=== PATIENT | male | born 1945 | race Caucasian/White ===

== ENCOUNTER → 2016-11-08 | Outpatient (CLI) | payer MEDICARE ==
[~2016-11-08] MED LIST: ARTHROTEC 50 MG75 MG PO; ASPIRIN81 MG PO; GLYBURIDE5 MG PO; MEDROL DOSEPAK4 MG PO; METFORMIN1000 MG PO; TORSEMIDE20 MG PO; VESICARE5 MG PO
[2016-11-08 11:12] LABS: BASO % 0.4 % (0.0-1.0); EOS # 0.1 10*3/uL (0.0-0.4); EOS % 1.7 % (1.0-4.0); HEMATOCRIT 40.5 % (42.0-52.0); HEMOGLOBIN 13.4 g/dl (14.0-18.0); LYMPH # 1.6 10*3/uL (1.3-4.4); LYMPH % 20.7 % (27.0-41.0); MEAN CELL VOLUME 86.9 fl (80.0-94.0); MEAN CORPUSCULAR HGB 28.8 pg (27.0-31.0); MEAN CORPUSCULAR HGB CONC 33.1 g/dl (33.0-37.0); MONO # 0.6 10*3/uL (0.1-1.0); MONO % 7.9 % (3.0-9.0); NEUT # 5.2 10*3/uL (2.3-7.9); NEUT % 68.8 % (47.0-73.0); PLATELET COUNT AUTOMATED 200 10*3/uL (130-400); RED BLOOD COUNT 4.66 10*6/uL (4.50-5.90); RED CELL DISTRI WIDTH 14.3 % (0-14.5); WHITE BLOOD COUNT 7.6 10*3/uL (4.8-10.8)
[2016-11-08 11:35] LABS: HEMOGLOBIN A1c 6.4 % (4.8-5.6)
[2016-11-08 11:41] LABS: ALBUMIN 3.4 gm/dl (3.1-4.5); ALKALINE PHOSPHATASE 111 U/L (45-117); BILIRUBIN, TOTAL 0.5 mg/dl (0.2-1.0); BUN 12 mg/dl (7-24); CARBON DIOXIDE 27 mmol/L (21-32); CHLORIDE 107 mmol/L (98-107); CHOLESTEROL 149 mg/dL (<200); EST GLOM FILT AFRICAN AMERICAN > 60 ml/min; GLUCOSE 100 mg/dL (65-99); HDL CHOLESTEROL 53 mg/dl (40-60); LDL CHOLESTEROL 79 mg/dL (9-159); POTASSIUM 4.1 mmol/L (3.5-5.1); SGOT/AST 15 IU/L (3-35); SGPT/ALT 20 U/L (12-78); SODIUM 142 mmol/L (136-145); TOTAL PROTEIN 6.6 gm/dL (6.4-8.2); TRIGLYCERIDES 85 mg/dl (<150); VLDL CHOLESTEROL 17 mg/dL (6-40)
[2016-11-08 11:47] LABS: THYROID STIM HORMONE (HS) 0.239 uIU/ml (0.358-4.75)
== END | disposition home or self-care (01) ==
LOC: LAB 10:46
PROVIDERS: Internal Medicine
DX: E78.5 Hyperlipidemia, unspecified (principal); E11.9 Type 2 diabetes mellitus without complications; E66.9 Obesity, unspecified; R53.83 Other fatigue

== ENCOUNTER → 2016-12-03 | Outpatient (CLI) | payer BC, MEDICARE ==
[2016-12-03 09:23] LABS: PROTHROMBIN TIME 10.5 SECONDS (9.0-12.4)
[2016-12-03 14:04] LABS: BILIRUBIN NEGATIVE (NEGATIVE); BLOOD NEGATIVE (NEGATIVE); CLARITY CLEAR (CLEAR); COLOR YELLOW (YELLOW); GLUCOSE NEGATIVE (NEGATIVE); KETONE NEGATIVE (NEGATIVE); LEUKO ESTERASE TRACE (NEGATIVE); NITRITE NEGATIVE (NEGATIVE); PH 5.5 (5.0-9.0); PROTEIN NEGATIVE (NEGATIVE); UROBILINOGEN 0.2 E.U./dl (0.2-1.0)
[2016-12-03 14:14] LABS: MUCOUS 1+; URINE REFLEX COMMENT YES (NO)
== END | disposition home or self-care (01) ==
LOC: LAB 08:15
PROVIDERS: Orthopaedic Surgery
DX: Z01.818 Encounter for other preprocedural examination (principal); M19.90 Unspecified osteoarthritis, unspecified site; E11.9 Type 2 diabetes mellitus without complications; I10 Essential (primary) hypertension; R35.0 Frequency of micturition; Z96.651 Presence of right artificial knee joint

== ENCOUNTER → 2017-03-22 | Outpatient (CLI) | payer BC, MEDICARE ==
[2017-03-22 08:08] LABS: BASO % 0.3 % (0.0-1.0); EOS # 0.1 10*3/uL (0.0-0.4); HEMATOCRIT 42.5 % (42.0-52.0); HEMOGLOBIN 13.6 g/dl (14.0-18.0); LYMPH # 2.2 10*3/uL (1.3-4.4); LYMPH % 23.8 % (27.0-41.0); MEAN CELL VOLUME 83.7 fl (80.0-94.0); MEAN CORPUSCULAR HGB 26.8 pg (27.0-31.0); MEAN PLATELET VOLUME 10.3 fl (9.6-12.3); MONO # 0.6 10*3/uL (0.1-1.0); MONO % 6.6 % (3.0-9.0); NEUT # 6.2 10*3/uL (2.3-7.9); NEUT % 67.9 % (47.0-73.0); PLATELET COUNT AUTOMATED 245 10*3/uL (130-400); RED BLOOD COUNT 5.08 10*6/uL (4.50-5.90); RED CELL DISTRI WIDTH 14.6 % (0-14.5); WHITE BLOOD COUNT 9.1 10*3/uL (4.8-10.8)
[2017-03-22 08:40] LABS: ALBUMIN 3.3 gm/dl (3.1-4.5); BILIRUBIN, TOTAL 0.5 mg/dl (0.2-1.0); BUN 11 mg/dl (7-24); CARBON DIOXIDE 23 mmol/L (21-32); CHLORIDE 107 mmol/L (98-107); CHOLESTEROL 127 mg/dL (<200); EST GLOM FILT AFRICAN AMERICAN > 60 ml/min; GLUCOSE 59 mg/dL (65-99); POTASSIUM 4.1 mmol/L (3.5-5.1); SGOT/AST 11 IU/L (3-35); SGPT/ALT 12 U/L (12-78); SODIUM 140 mmol/L (136-145); TOTAL PROTEIN 6.9 gm/dL (6.4-8.2); TRIGLYCERIDES 126 mg/dl (<150); VLDL CHOLESTEROL 25 mg/dL (6-40)
[2017-03-22 08:47] LABS: ALKALINE PHOSPHATASE 115 U/L (45-117); HDL CHOLESTEROL 41 mg/dl (40-60); LDL CHOLESTEROL 61 mg/dL (9-159); T3 UPTAKE 40 % (31-39); THYROID STIM HORMONE (HS) 0.186 uIU/ml (0.358-4.75); THYROXINE (T4) TOTAL 9.4 ug/dl (4.5-12.1)
[2017-03-22 09:37] LABS: HEMOGLOBIN A1c 6.3 % (4.8-5.6)
== END | disposition home or self-care (01) ==
LOC: LAB 02:28
PROVIDERS: Internal Medicine
DX: E11.9 Type 2 diabetes mellitus without complications (principal); I10 Essential (primary) hypertension; E78.5 Hyperlipidemia, unspecified; R73.9 Hyperglycemia, unspecified; R53.83 Other fatigue

== ENCOUNTER 2017-07-25 15:27 | Emergency (ER) | payer BC, MEDICARE ==
[~2017-07-25] VITALS: Ht 180.3 cm; Wt 129.3 kg
[2017-07-25 16:36] LABS: HEMATOCRIT 39.7 % (42.0-52.0); HEMOGLOBIN 13.3 g/dl (14.0-18.0); LYMPH # 0.5 10*3/uL (1.3-4.4); LYMPH % 7.1 % (27.0-41.0); MEAN CELL VOLUME 83.4 fl (80.0-94.0); MEAN CORPUSCULAR HGB 27.9 pg (27.0-31.0); MEAN CORPUSCULAR HGB CONC 33.5 g/dl (33.0-37.0); MEAN PLATELET VOLUME 10.2 fl (9.6-12.3); MONO # 0.9 10*3/uL (0.1-1.0); MONO % 12.1 % (3.0-9.0); NEUT % 80.5 % (47.0-73.0); PLATELET COUNT AUTOMATED 184 10*3/uL (130-400); RED BLOOD COUNT 4.76 10*6/uL (4.50-5.90); RED CELL DISTRI WIDTH 15.2 % (0-14.5); WHITE BLOOD COUNT 7.5 10*3/uL (4.8-10.8)
[2017-07-25 16:49] LABS: ACT PARTIAL THROMBO TIME 28.7 SECONDS (20.8-31.5)
[2017-07-25 16:59] LABS: ALBUMIN 3.1 gm/dl (3.1-4.5); ALKALINE PHOSPHATASE 101 U/L (45-117); BUN 15 mg/dl (7-24); CHLORIDE 100 mmol/L (98-107); CREATININE 0.71 mg/dL (0.70-1.30); LIPASE 140 U/L (73-393); POTASSIUM 3.3 mmol/L (3.5-5.1); SGOT/AST 33 IU/L (3-35); SGPT/ALT 25 U/L (12-78); SODIUM 137 mmol/L (136-145); TOTAL PROTEIN 6.5 gm/dL (6.4-8.2)
[2017-07-25 17:00] LABS: TROPONIN I 0.035 ng/ml (<0.045)
[2017-07-25] MEDS ORDERED: TESSALON PERLE100 M1 PO (18:37)
[2017-07-25] MEDS ORDERED: VIBRAMYCIN100 MG PO (18:37)
== END 2017-07-25 18:45 | disposition home or self-care (01) ==
LOC: ED 15:27
PROVIDERS: Physician Assistant
DX: S09.90XA Unspecified injury of head, initial encounter (principal); J40 Bronchitis, not specified as acute or chronic; E11.9 Type 2 diabetes mellitus without complications; I10 Essential (primary) hypertension; Z79.84 Long term (current) use of oral hypoglycemic drugs; Z79.82 Long term (current) use of aspirin; Z79.899 Other long term (current) drug therapy; W10.8XXA Fall (on) (from) other stairs and steps, initial encounter; Y93.89 Activity, other specified; Y92.89 Other specified places as the place of occurrence of the external cause; Y99.8 Other external cause status

== ENCOUNTER → 2019-04-15 | Outpatient (CLI) | payer MEDICARE ==
[~2019-04-15] MED LIST changes: +TESSALON PERLE100 M1 PO; +VIBRAMYCIN100 MG PO
== END | disposition home or self-care (01) ==
LOC: US 04-09 13:30
DX: N28.1 Cyst of kidney, acquired (principal); N39.498 Other specified urinary incontinence; E11.9 Type 2 diabetes mellitus without complications

== ENCOUNTER 2020-09-02 13:12 | Inpatient (IN) | payer MEDICARE ==
[~2020-09-02] VITALS: Wt 118.4 kg
[~2020-09-02 13:12] MED LIST changes: +GLUCOPHAGE500 M1 PO; -METFORMIN1000 MG PO
[2020-09-02 13:14] VITALS: BP 127/52
[2020-09-02 13:47] LABS: BASO % 0.4 % (0.0-1.0); EOS # 0.1 10*3/uL (0.0-0.4); EOS % 1.2 % (1.0-4.0); HEMATOCRIT 41.5 % (42.0-52.0); LYMPH # 1.1 10*3/uL (1.3-4.4); LYMPH % 13.9 % (27.0-41.0); MEAN CELL VOLUME 91.6 fl (80.0-94.0); MEAN CORPUSCULAR HGB CONC 30.6 g/dl (33.0-37.0); MEAN PLATELET VOLUME 10.6 fl (9.6-12.3); MONO # 0.7 10*3/uL (0.1-1.0); MONO % 8.8 % (3.0-9.0); NEUT # 5.8 10*3/uL (2.3-7.9); NEUT % 75.6 % (47.0-73.0); PLATELET COUNT AUTOMATED 197 10*3/uL (130-400); RED BLOOD COUNT 4.53 10*6/uL (4.50-5.90); RED CELL DISTRI WIDTH 14.2 % (0-14.5); WHITE BLOOD COUNT 7.6 10*3/uL (4.8-10.8)
[2020-09-02 13:57] LABS: ACT PARTIAL THROMBO TIME 26.6 SECONDS (20.0-32.1)
[2020-09-02 14:03] LABS: ALBUMIN 3.1 gm/dl (3.1-4.5); ALKALINE PHOSPHATASE 106 U/L (45-117); BUN 12 mg/dl (7-24); CHLORIDE 113 mmol/L (98-107); CREATININE 0.86 mg/dL (0.70-1.30); POTASSIUM 3.2 mmol/L (3.5-5.1); SGOT/AST 6 IU/L (3-35); SGPT/ALT 14 U/L (12-78); SODIUM 144 mmol/L (136-145); TOTAL PROTEIN 6.1 gm/dL (6.4-8.2)
[2020-09-02 14:07] LABS: TROPONIN I < 0.015 ng/ml (<0.045)
[2020-09-02 18:40] LABS: BILIRUBIN Negative (Negative); BLOOD Negative (Negative); CLARITY Clear (Clear); COLOR Yellow (Yellow); GLUCOSE Negative (Negative); KETONE Trace (Negative); LEUKO ESTERASE 1+ (Negative); NITRITE Negative (Negative); PH 5.5 (4.5-8.0); SPECIFIC GRAVITY 1.025 (1.001-1.030)
[2020-09-02 18:41] VITALS: BP 122/51
[2020-09-02 18:53] LABS: BACTERIA 1+; WBC 16-20 wbc/hpf (0-5)
[2020-09-02 20:50] VITALS: BP 150/82
[2020-09-02] MEDS ORDERED: LORAZEPAM0.5 MG PO (21:03)
[2020-09-02] MEDS ORDERED: METHIMAZOLE5 M1 PO (21:03)
[2020-09-02] MEDS ORDERED: HYDRALAZINE HC100 MG PO (21:03)
[2020-09-02] MEDS ORDERED: GABAPENTIN100 M2 PO (21:04)
[2020-09-02] MEDS ORDERED: OXYBUTYNIN ER15 MG PO (21:04)
[2020-09-02] MEDS ORDERED: MEMANTINE HCL5 MG PO (21:05)
[2020-09-02] MEDS ORDERED: DONEPEZIL HCL10 MG PO (21:05)
[2020-09-02] MEDS ORDERED: RISPERIDONE0.5 MG PO (21:05)
[2020-09-02] MEDS ORDERED: GLIPIZIDE5 MG PO (21:06)
[2020-09-02] MEDS ORDERED: ADVIL200 M1 PO (23:58)
[2020-09-03 01:00] VITALS: BP 160/82
[2020-09-03 06:45] LABS: BASO % 0.2 % (0.0-1.0); EOS # 0.2 10*3/uL (0.0-0.4); EOS % 1.8 % (1.0-4.0); HEMATOCRIT 40.1 % (42.0-52.0); LYMPH # 1.4 10*3/uL (1.3-4.4); LYMPH % 16.3 % (27.0-41.0); MEAN CELL VOLUME 90.3 fl (80.0-94.0); MEAN CORPUSCULAR HGB 28.6 pg (27.0-31.0); MEAN CORPUSCULAR HGB CONC 31.7 g/dl (33.0-37.0); MEAN PLATELET VOLUME 10.9 fl (9.6-12.3); MONO # 0.8 10*3/uL (0.1-1.0); MONO % 9.2 % (3.0-9.0); NEUT # 6.4 10*3/uL (2.3-7.9); NEUT % 72.3 % (47.0-73.0); PLATELET COUNT AUTOMATED 196 10*3/uL (130-400); RED BLOOD COUNT 4.44 10*6/uL (4.50-5.90); RED CELL DISTRI WIDTH 14.2 % (0-14.5); WHITE BLOOD COUNT 8.8 10*3/uL (4.8-10.8)
[2020-09-03 06:55] LABS: BUN 12 mg/dl (7-24); CHLORIDE 115 mmol/L (98-107); CREATININE 0.67 mg/dL (0.70-1.30); SODIUM 143 mmol/L (136-145)
[2020-09-03 08:00] VITALS: BP 180/98; BP 185/69
[2020-09-03 09:50] VITALS: BP 150/78
[2020-09-03 12:00] VITALS: BP 143/84
[2020-09-03 16:00] VITALS: BP 139/89
[2020-09-03 20:00] VITALS: BP 158/50
[2020-09-04] VITALS (7 sets, daily range): BP systolic 159–184; BP diastolic 65–94
[2020-09-05] VITALS: BP 112/60; BP 166/61
[2020-09-05 07:29] LABS: FERRITIN 42.9 ng/mL (22.0-322.0)
[2020-09-05 07:34] LABS: BUN 12 mg/dl (7-24); CHLORIDE 110 mmol/L (98-107); POTASSIUM 3.7 mmol/L (3.5-5.1); SODIUM 138 mmol/L (136-145)
[2020-09-05 07:36] LABS: CREATININE 0.71 mg/dL (0.70-1.30); IRON 56 ug/dL (65-175); TOTAL IRON BINDING CAPACITY 460 ug/dl (250-450)
[2020-09-05 08:00] VITALS: BP 169/82
[2020-09-05 12:00] VITALS: BP 180/60
[2020-09-05 20:00] VITALS: BP 161/62
[2020-09-06] VITALS (11 sets, daily range): BP systolic 117–179; BP diastolic 47–70
[2020-09-06 06:55] LABS: ACT PARTIAL THROMBO TIME 35.3 SECONDS (20.0-32.1)
[2020-09-07] VITALS: BP 146/52
[2020-09-07 06:12] LABS: BASO % 0.1 % (0.0-1.0); EOS % 0.4 % (1.0-4.0); HEMATOCRIT 37.3 % (42.0-52.0); LYMPH # 0.8 10*3/uL (1.3-4.4); LYMPH % 8.4 % (27.0-41.0); MEAN CELL VOLUME 91.6 fl (80.0-94.0); MEAN CORPUSCULAR HGB 29.2 pg (27.0-31.0); MEAN CORPUSCULAR HGB CONC 31.9 g/dl (33.0-37.0); MEAN PLATELET VOLUME 10.6 fl (9.6-12.3); MONO % 10.7 % (3.0-9.0); NEUT # 7.6 10*3/uL (2.3-7.9); PLATELET COUNT AUTOMATED 196 10*3/uL (130-400); RED BLOOD COUNT 4.07 10*6/uL (4.50-5.90); RED CELL DISTRI WIDTH 14.2 % (0-14.5); WHITE BLOOD COUNT 9.5 10*3/uL (4.8-10.8)
[2020-09-07 06:29] LABS: BUN 21 mg/dl (7-24); CHLORIDE 105 mmol/L (98-107); CREATININE 0.69 mg/dL (0.70-1.30); POTASSIUM 3.6 mmol/L (3.5-5.1); SODIUM 138 mmol/L (136-145)
[2020-09-07 08:00] VITALS: BP 170/54
[2020-09-07 12:00] VITALS: BP 174/68
[2020-09-07] MEDS ORDERED: ASPIRIN ADULT L81 M2 PO (15:34)
[2020-09-07] MEDS ORDERED: FEOSOL325 MG PO (15:34)
[2020-09-07] MEDS ORDERED: ELIQUIS5 M1 PO (15:34)
[2020-09-07] MEDS ORDERED: NATURE'S BLEND F1 MG PO (15:34)
[2020-09-07 16:00] VITALS: BP 173/69
[2020-09-07 18:00] VITALS: BP 142/80
== END 2020-09-07 18:58 | DRG 641 ==
LOC: ED 13:12 → EDHOLD 17:57 → 5E 17:57
PROVIDERS: Nurse Practitioner Family; Student in an Organized Health Care Education/Training Program; ADMIT Internal Medicine; ATTEND Internal Medicine
DX: E87.6 Hypokalemia (principal); N39.0 Urinary tract infection, site not specified; I45.2 Bifascicular block; F02.81 Dementia in other diseases classified elsewhere, unspecified severity, with behavioral disturbance; G91.2 (Idiopathic) normal pressure hydrocephalus; I48.91 Unspecified atrial fibrillation; E11.9 Type 2 diabetes mellitus without complications; Z96.651 Presence of right artificial knee joint; I45.10 Unspecified right bundle-branch block; D50.0 Iron deficiency anemia secondary to blood loss (chronic); N32.81 Overactive bladder; R45.1 Restlessness and agitation; I10 Essential (primary) hypertension; G30.9 Alzheimer's disease, unspecified; F39 Unspecified mood [affective] disorder; E53.8 Deficiency of other specified B group vitamins; E87.70 Fluid overload, unspecified; Z66 Do not resuscitate; Z51.5 Encounter for palliative care; M25.511 Pain in right shoulder; Z20.822 Contact with and (suspected) exposure to COVID-19; Z98.49 Cataract extraction status, unspecified eye; Z79.899 Other long term (current) drug therapy

== ENCOUNTER 2020-09-12 13:17 | Emergency (ER) | payer MEDICARE ==
[~2020-09-12] VITALS: Ht 180.3 cm; Wt 78.0 kg
[~2020-09-12 13:17] MED LIST changes: +ADVIL200 M1 PO; +ASPIRIN ADULT L81 M2 PO; +DONEPEZIL HCL10 MG PO; +ELIQUIS5 M1 PO; +FEOSOL325 MG PO; +GABAPENTIN100 M2 PO; +GLIPIZIDE5 MG PO; +HYDRALAZINE HC100 MG PO; +LORAZEPAM0.5 MG PO; +MEMANTINE HCL5 MG PO; +METHIMAZOLE5 M1 PO; +NATURE'S BLEND F1 MG PO; +OXYBUTYNIN ER15 MG PO; +RISPERIDONE0.5 MG PO
[2020-09-12 14:22] LABS: BASO % 0.2 % (0.0-1.0); EOS # 0.1 10*3/uL (0.0-0.4); EOS % 0.8 % (1.0-4.0); LYMPH # 0.8 10*3/uL (1.3-4.4); LYMPH % 6.9 % (27.0-41.0); MEAN CELL VOLUME 92.2 fl (80.0-94.0); MEAN CORPUSCULAR HGB 29.1 pg (27.0-31.0); MEAN CORPUSCULAR HGB CONC 31.5 g/dl (33.0-37.0); MEAN PLATELET VOLUME 10.1 fl (9.6-12.3); MONO # 0.9 10*3/uL (0.1-1.0); MONO % 7.6 % (3.0-9.0); NEUT # 9.9 10*3/uL (2.3-7.9); PLATELET COUNT AUTOMATED 296 10*3/uL (130-400); RED BLOOD COUNT 4.23 10*6/uL (4.50-5.90); RED CELL DISTRI WIDTH 13.9 % (0-14.5); WHITE BLOOD COUNT 11.8 10*3/uL (4.8-10.8)
[2020-09-12 14:32] LABS: ACT PARTIAL THROMBO TIME 31.6 SECONDS (20.0-32.1)
[2020-09-12 14:37] LABS: ALBUMIN 2.5 gm/dl (3.1-4.5); ALKALINE PHOSPHATASE 105 U/L (45-117); BUN 21 mg/dl (7-24); CHLORIDE 113 mmol/L (98-107); CREATININE 0.65 mg/dL (0.70-1.30); LIPASE 30 U/L (73-393); POTASSIUM 4.5 mmol/L (3.5-5.1); SGOT/AST 15 IU/L (3-35); SGPT/ALT 24 U/L (12-78); SODIUM 142 mmol/L (136-145); TROPONIN I < 0.015 ng/ml (<0.045)
[2020-09-12 15:54] LABS: BILIRUBIN Negative (Negative); BLOOD Negative (Negative); CLARITY Clear (Clear); COLOR Yellow (Yellow); GLUCOSE Negative (Negative); KETONE Trace (Negative); LEUKO ESTERASE Trace (Negative); NITRITE Negative (Negative)
[2020-09-12 16:02] LABS: BACTERIA 1+; EPITHELIAL CELLS 0-2; FINE GRANULAR CAST 0-2; RBC 0-2 rbc/hpf (0-2)
== END 2020-09-12 17:36 ==
LOC: ED 13:17
PROVIDERS: Emergency Medicine
DX: S01.81XA Laceration without foreign body of other part of head, initial encounter (principal); Z79.899 Other long term (current) drug therapy; Z79.84 Long term (current) use of oral hypoglycemic drugs; Z96.651 Presence of right artificial knee joint; W07.XXXA Fall from chair, initial encounter; Y93.89 Activity, other specified; Y92.89 Other specified places as the place of occurrence of the external cause; Y99.8 Other external cause status

== ENCOUNTER 2020-10-18 11:02 | Inpatient (IN) | payer MEDICARE ==
[~2020-10-18] VITALS: Ht 152 cm; Wt 120.0 kg
[2020-10-18 11:03] VITALS: BP 136/54
[2020-10-18 11:47] LABS: BASO % 0.4 % (0.0-1.0); EOS # 0.1 10*3/uL (0.0-0.4); EOS % 1.1 % (1.0-4.0); HEMATOCRIT 41.8 % (42.0-52.0); LYMPH # 1.1 10*3/uL (1.3-4.4); LYMPH % 9.6 % (27.0-41.0); MEAN CELL VOLUME 92.5 fl (80.0-94.0); MEAN CORPUSCULAR HGB CONC 31.3 g/dl (33.0-37.0); MEAN PLATELET VOLUME 10.5 fl (9.6-12.3); MONO # 1.1 10*3/uL (0.1-1.0); MONO % 9.8 % (3.0-9.0); NEUT # 8.8 10*3/uL (2.3-7.9); NEUT % 78.7 % (47.0-73.0); PLATELET COUNT AUTOMATED 171 10*3/uL (130-400); RED BLOOD COUNT 4.52 10*6/uL (4.50-5.90); RED CELL DISTRI WIDTH 14.4 % (0-14.5); WHITE BLOOD COUNT 11.2 10*3/uL (4.8-10.8)
[2020-10-18 11:58] LABS: ACT PARTIAL THROMBO TIME 29.4 SECONDS (20.0-32.1)
[2020-10-18 12:05] LABS: ALBUMIN 2.8 gm/dl (3.1-4.5); ALKALINE PHOSPHATASE 102 U/L (45-117); BUN 20 mg/dl (7-24); CHLORIDE 113 mmol/L (98-107); CREATININE 0.86 mg/dL (0.70-1.30); POTASSIUM 4.3 mmol/L (3.5-5.1); SGOT/AST 9 IU/L (3-35); SGPT/ALT 14 U/L (12-78); SODIUM 145 mmol/L (136-145); TOTAL PROTEIN 5.8 gm/dL (6.4-8.2)
[2020-10-18 12:12] LABS: BILIRUBIN Negative (Negative); BLOOD 1+ (Negative); CLARITY Cloudy (Clear); COLOR Yellow (Yellow); GLUCOSE Negative (Negative); KETONE Trace (Negative); LEUKO ESTERASE 2+ (Negative); NITRITE Negative (Negative); PH 7.5 (4.5-8.0)
[2020-10-18 12:30] LABS: BACTERIA 4+; RBC TNTC rbc/hpf (0-2); WBC 41-50 wbc/hpf (0-5)
[2020-10-18 16:08] VITALS: BP 151/53
[2020-10-18] MEDS ORDERED: DIVALPROEX SOD125 M1 PO (16:37)
[2020-10-18] MEDS ORDERED: NAMENDA10 MG PO (16:37)
[2020-10-18] MEDS ORDERED: TAPAZOLE5 MG PO (17:18)
[2020-10-18 17:20] VITALS: BP 161/73
[2020-10-18 20:00] VITALS: BP 154/52
[2020-10-19] VITALS (7 sets, daily range): BP systolic 138–170; BP diastolic 50–80
[2020-10-19 08:46] LABS: BASO % 0.3 % (0.0-1.0); EOS # 0.1 10*3/uL (0.0-0.4); EOS % 0.7 % (1.0-4.0); HEMATOCRIT 39.3 % (42.0-52.0); LYMPH # 1.3 10*3/uL (1.3-4.4); LYMPH % 11.8 % (27.0-41.0); MEAN CELL VOLUME 90.6 fl (80.0-94.0); MEAN CORPUSCULAR HGB 28.8 pg (27.0-31.0); MEAN CORPUSCULAR HGB CONC 31.8 g/dl (33.0-37.0); MEAN PLATELET VOLUME 10.2 fl (9.6-12.3); MONO # 1.2 10*3/uL (0.1-1.0); MONO % 11.5 % (3.0-9.0); NEUT # 8.1 10*3/uL (2.3-7.9); NEUT % 75.3 % (47.0-73.0); PLATELET COUNT AUTOMATED 170 10*3/uL (130-400); RED BLOOD COUNT 4.34 10*6/uL (4.50-5.90); RED CELL DISTRI WIDTH 14.4 % (0-14.5); WHITE BLOOD COUNT 10.7 10*3/uL (4.8-10.8)
[2020-10-19 09:18] LABS: BUN 15 mg/dl (7-24); CHLORIDE 114 mmol/L (98-107); CREATININE 0.58 mg/dL (0.70-1.30); POTASSIUM 4.3 mmol/L (3.5-5.1); SODIUM 146 mmol/L (136-145)
[2020-10-20] VITALS: BP 166/64
[2020-10-20 06:14] LABS: ALBUMIN 2.5 gm/dl (3.1-4.5); ALKALINE PHOSPHATASE 86 U/L (45-117); BUN 15 mg/dl (7-24); CHLORIDE 112 mmol/L (98-107); CREATININE 0.63 mg/dL (0.70-1.30); POTASSIUM 4.3 mmol/L (3.5-5.1); SGOT/AST 6 IU/L (3-35); SGPT/ALT 14 U/L (12-78); SODIUM 142 mmol/L (136-145); TOTAL PROTEIN 5.8 gm/dL (6.4-8.2)
[2020-10-20 07:05] LABS: ABG BASE EXCESS 0.2 mmol/L (-2.0-2.0); ARTERIAL BLOOD GAS PH 7.444 (7.35-7.45); ARTERIAL BLOOD GAS PO2 79.5 (80-90)
[2020-10-20 08:00] VITALS: BP 152/63
[2020-10-20 12:00] VITALS: BP 155/67
[2020-10-20 16:00] VITALS: BP 149/53
[2020-10-20 20:00] VITALS: BP 148/79
[2020-10-21] VITALS: BP 162/60
[2020-10-21 06:06] LABS: RHEUMATOID ARTHRITIS FACTOR 12.2 IU/mL (0.0-13.9)
[2020-10-21 08:00] VITALS: BP 187/63
[2020-10-21] MEDS ORDERED: COLCHICINE0.6 M2 PO (08:18)
[2020-10-21] MEDS ORDERED: DICLOFENAC SOD100 G1 T (08:18)
[2020-10-21] MEDS ORDERED: LINEZOLID600 MG PO (08:18)
[2020-10-21 10:03] VITALS: BP 158/80
== END 2020-10-21 13:06 | DRG 553 ==
LOC: ED 11:02 → EDHOLD 14:21 → 5E 14:21
PROVIDERS: Family Medicine; ADMIT Internal Medicine; ATTEND Internal Medicine
DX: M10.042 Idiopathic gout, left hand (principal); G93.41 Metabolic encephalopathy; N39.0 Urinary tract infection, site not specified; G91.2 (Idiopathic) normal pressure hydrocephalus; I48.21 Permanent atrial fibrillation; Z68.43 Body mass index [BMI] 50.0-59.9, adult; R62.7 Adult failure to thrive; Z96.651 Presence of right artificial knee joint; R31.9 Hematuria, unspecified; D72.829 Elevated white blood cell count, unspecified; G30.9 Alzheimer's disease, unspecified; F02.80 Dementia in other diseases classified elsewhere, unspecified severity, without behavioral disturbance, psychotic disturbance, mood disturbance, and anxiety; I10 Essential (primary) hypertension; E11.9 Type 2 diabetes mellitus without complications; M79.89 Other specified soft tissue disorders; M19.032 Primary osteoarthritis, left wrist; B95.7 Other staphylococcus as the cause of diseases classified elsewhere; Z79.01 Long term (current) use of anticoagulants; Z98.49 Cataract extraction status, unspecified eye; Z20.822 Contact with and (suspected) exposure to COVID-19